=== PATIENT | male | born 1970 | race Caucasian/White ===

== ENCOUNTER 2019-07-27 12:12 | Observation (INO) ==
[2019-07-27] MEDS ORDERED: Aspirin 81 MG TAB.CHEW PO ONE (12:44)
[2019-07-27] MEDS ORDERED: Nitroglycerin 0.4 MG TAB.SUBL SL PRN (12:44)
[2019-07-27] MEDS ORDERED: Isovue-370 500 ML BOTTLE IVP ONE (12:45)
[2019-07-27 13:09] LABS: Basophils # 0.1 K/mcL (0.0-0.2); Basophils % 0.6 %; Eosinophils # 0.2 K/mcL (0.0-0.6); Eosinophils % 1.8 %; Hematocrit 49.6 % (37.5-50.1); Hemoglobin 16.1 g/dL (12.9-16.9); Immature Granulocytes % 0.8 % (0-4); Lymphocytes # 1.7 K/mcL (0.6-4.6); Lymphocytes % 15.6 %; Mean Corpuscular HGB Conc 32.5 g/dL (31.6-35.5); Mean Corpuscular Hemoglobin 28.5 pg (28.0-33.3); Mean Corpuscular Volume 87.8 fL (83.0-100.0); Mean Platelet Volume 12.2 fL (9.4-12.4); Monocytes # 0.7 K/mcL (0.0-1.3); Monocytes % 6.4 %; Platelet Count 216 K/mcL (140-400); Red Blood Count 5.65 M/mcL (4.19-5.50); Segmented Neutrophils % 74.8 %; White Blood Count 10.6 K/mcL (4.3-11.1)
[2019-07-27 13:17] LABS: INR 0.9; Prothrombin Time 10.5 Seconds (9.4-12.1)
[2019-07-27 13:20] LABS: Activated Partial Thrombo Time 31.5 Seconds (26.0-36.0)
[2019-07-27 13:26] LABS: BUN/Creatinine Ratio 24 (6-26); Blood Urea Nitrogen 18 mg/dL (6-20); Calcium 9.5 mg/dL (8.6-10.3); Carbon Dioxide 20 mEq/L (23-29); Chloride 106 mEq/L (98-107); Glucose 229 mg/dL (70-105); Osmolality,Calculated 291 (280-300); Sodium 136 mEq/L (136-145); eGFR For African Americans > 60 (> 60); eGFR For Non-African Americans > 60 (> 60)
[2019-07-27 13:27] LABS: Troponin I < 0.03 ng/mL (< 0.04)
--- NOTE | 2019-07-27 13:28 | Emergency Department Note ---
Disposition Clinical Impression: Chest pain Qualifiers: Chest pain type: unspecified Qualified Code(s): R07.9 - Chest pain, unspecified Disposition: Admitted As Inpatient Condition: Good Forms: ED Satisfaction Letter Time of Disposition: 15:32 General Adult HPI - General Chief complaint: ED Chest Pain Stated complaint: Neck Pain/Near Syncope Time Seen by Provider: 07/27/19 12:32 Source: patient Mode of arrival: ambulatory Limitations: no limitations Nursing Notes Reviewed: Yes Vital Signs Reviewed: Yes - History of Present Illness HPI Narrative: Patient is a 49-year-old male that presents emergency Department with reports of left-sided chest pain as well as pain in the center of his chest and radiates straight into his back. Patient states is a dull ache and an annoying pain in the center of his chest is a sharp pain in the left side of his chest. Patient states that when he has the pain he becomes diaphoretic, nauseated and at times will feel lightheaded. Patient also states that the pain does radiate up into his left shoulder and down into his left arm. Patient states that he does have chronic pain in his left arm however this pain is different. Patient states that he does have a strong family history of cardiac disease. Patient states that he has a history of hypertension, high cholesterol, diabetes and he is a smoker. Patient states that he has never really had pain like this before. Patient states that it began while he was at rest. Patient states the is unsure if it gets worse when he is active. Pain Scale: 5 - Related Data Home Medications Medication Instructions Recorded Confirmed Atenolol 100 mg PO DAILY 02/13/17 07/27/19 Ranitidine HCl [Acid Liner Helper] 150 mg PO DAILY 02/27/19 07/27/19 Losartan/Hydrochlorothiazide 1 tab PO DAILY 03/05/19 07/27/19 [Losartan-Hctz 100-12.5 mg Tab] glipiZIDE [Glipizide] 10 mg PO BID 03/05/19 07/27/19 Atorvastatin Calcium [Lipitor] 20 mg PO DAILY 07/27/19 07/27/19 FLUoxetine HCl [PROzac] 20 mg PO DAILY 07/27/19 07/27/19 aMILoride [Midamor] 10 mg PO DAILY 07/27/19 07/27/19 hydrOXYzine HCl [Hydroxyzine HCl] 25 mg PO BID PRN 07/27/19 07/27/19 Allergies Allergy/AdvReac Type Severity Reaction Status Date / Time No Known Allergies Allergy Verified 07/27/19 12:18 All systems ED: reviewed and negative except as stated. Constitutional: Reports: other (Sweating.). Denies: fever Cardiovascular: Reports: chest pain Respiratory: Reports: dyspnea Gastrointestinal: Reports: nausea Musculoskeletal: Reports: other (Left arm pain). Denies: back pain, neck pain Past Medical History - Past Medical History Medical history: Reports: diabetes, GERD, hypertension, other Surgical history: Reports: appendectomy, cholecystectomy Psychiatric history: Reports: anxiety - Social History Smoking Status: Current every day smoker Smokeless Tobacco Status: No Alcohol use: Reports: rarely Drug use: Reports: none Physical Exam - General Limitations: no limitations General appearance: alert, in no apparent distress - Head Head exam: atraumatic, normocephalic - Eye Eye exam: Present: normal appearance, EOMI - Neck Neck exam: Present: normal inspection, full ROM, trachea midline - Respiratory Respiratory exam: Present: normal lung sounds bilaterally. Absent: respiratory distress, wheezes - Cardiovascular Cardiovascular exam: Present: regular rate, normal rhythm, normal heart sounds, +S1, +S2 - Abdominal Exam Abdominal exam: Present: soft, Non-Tender, normal bowel sounds - Neurological Exam Neurological exam: Present: alert, oriented X3 - Psychiatric Psychiatric exam: Present: normal affect, normal mood - Skin Skin exam: Present: warm, dry, intact Course Vital Signs Temperature 99.0 F 07/27/19 12:19 Pulse Rate 57 07/27/19 12:19 Respiratory Rate 20 07/27/19 12:19 Blood Pressure 204/95 07/27/19 12:19 O2 Sat by Pulse Oximetry 98 07/27/19 12:19 Temperature 99.0 F 07/27/19 12:19 Pulse Rate 51 07/27/19 15:23 Respiratory Rate 14 07/27/19 15:23 Blood Pressure 151/87 07/27/19 15:23 O2 Sat by Pulse Oximetry 100 07/27/19 15:23 Oxygen Delivery Oxygen Delivery Room Air Medical Decision Making - MDM Narrative Medical decision making narrative: Due to the patient since emergency Department with reports of chest pain as well as pain that radiates straight into his back there is concern for possible cardiac etiology versus aortic dissection. A dissection study will be obtained. Patient laboratory testing, chest x-ray and EKG including a troponin will be obtained. Patient also be given nitroglycerin and aspirin. Patient laboratory testing was relatively unremarkable. Chest x-ray did not show any acute cardial ulnar process. The patient's CT dissection study did not show evidence of dissection or aneurysm. Patient's EKG did not show any acute ischemic changes. His troponin was negative. At this time due to the patient having multiple risk factors as well as being a smoker and overweight I think that is most appro priate for him to be admitted to the hospital for further evaluation and management of his chest pain. Patient was in agreement with this plan. Patient was admitted to the hospitalist Dr. Infante. He is accepted the patient to their service. Patient be admitted to the hospital this time for further evaluation and management. - Medical Records Medical records reviewed: Yes I reviewed the patient's medical records. - Lab Data Lab results reviewed: Yes I reviewed the patient's lab results. Result diagrams: 07/27/19 12:54 07/27/19 12:54 Lab Results 07/27/19 07/27/19 07/27/19 Range/Units 12:54 12:54 12:54 WBC 10.6 (4.3-11.1) K/mcL RBC 5.65 H (4.19-5.50) M/mcL Hgb 16.1 (12.9-16.9) g/dL Hct 49.6 (37.5-50.1) % MCV 87.8 (83.0-100.0) fL MCH 28.5 (28.0-33.3) pg MCHC 32.5 (31.6-35.5) g/dL RDW 13.0 (11.5-14.5) % Plt Count 216 (140-400) K/mcL MPV 12.2 (9.4-12.4) fL Immature Gran % 0.8 (0-4) % Seg Neutrophils % 74.8 % Lymphocytes % 15.6 % Monocytes % 6.4 % Eosinophils % 1.8 % Basophils % 0.6 % Neutrophils # 8.0 (1.6-8.9) K/mcL Lymphocytes # 1.7 (0.6-4.6) K/mcL Monocytes # 0.7 (0.0-1.3) K/mcL Eosinophils # 0.2 (0.0-0.6) K/mcL Basophils # 0.1 (0.0-0.2) K/mcL PT 10.5 (9.4-12.1) Seconds INR 0.9 APTT 31.5 (26.0-36.0) Seconds Sodium 136 (136-145) mEq/L Potassium 4.0 (3.5-5.1) mEq/L Chloride 106 (98-107) mEq/L Carbon Dioxide 20 L (23-29) mEq/L BUN 18 (6-20) mg/dL Creatinine 0.75 (0.70-1.30) mg/dL Est GFR ( Amer) > 60 (> 60) Est GFR (Non-Af Amer) > 60 (> 60) BUN/Creatinine Ratio 24 (6-26) Glucose 229 H (70-105) mg/dL Calculated Osmolality 291 (280-300) Calcium 9.5 (8.6-10.3) mg/dL Troponin I < 0.03 (< 0.04) ng/mL - Radiology Data Radiology results reviewed: Yes I reviewed the patient's radiology results. CT Dissection 07/27/19 12:45 IMPRESSION: 1. No evidence for aortic dissection or aneurysm. 2. Although not optimized for pulmonary artery visualization, no clear evidence for any suspicious filling defects in the central pulmonary arteries to suggest acute pulmonary embolism. 3. No acute infective or inflammatory process. 4. Status post cholecystectomy. D/ / Mehul Carolina MD / Mehul Carolina MD Interpreting Provider: Mehul Carolina MD Chest X-Ray 07/27/19 12:45 IMPRESSION: No radiographic evidence of acute cardiopulmonary disease. D/ / Roberto Lin / Roberto Lin Interpreting Provider: Roberto Lin - EKG Data EKG #1 EKG attestation: Yes I reviewed and interpreted this EKG. EKG results narrative: Patient's EKG shows a sinus rhythm at a rate of 57 bpm, RI interval 166, QRS duration 98, QTc of 416. There is no evidence of STEMI on EKG. This is compared to previous EKG on 04/14/19. Attestation Statement - Attestation Attestation: I examined this patient and my medical decision-making was reviewed with the Resident Physician. I agree with the documented findings, disposition and treatment plan as described except to the extent set forth below. Patient did complain some chest discomfort, diaphoresis. The patient states that he has pain, the pain subsides breaks out into a sweat. He denies any severe shortness of breath, leg pain or swelling. The patient did have an EKG. I do agree with the resident's interpretation of this EKG. Do not see any evidence of STEMI. Patient at this time did receive aspirin. Given that the pain did radiate to his back and with his history of hypertension, dissection was ruled out with a CT. This was negative. The patient this point in time is going to be admitted for further cardiac rule out. The patient will be admitted in stable condition.
[2019-07-27] MEDS ORDERED: Ondansetron 4 MG/2 ML VIAL IVP PRN (17:01)
[2019-07-27] MEDS ORDERED: Acetaminophen 325 MG TABLET PO PRN (17:01)
[2019-07-27] MEDS ORDERED: traMADol 50 MG TABLET PO PRN (17:01)
[2019-07-27] MEDS ORDERED: Naloxone 0.4 MG/ML INJ IVP PRN (17:01)
[2019-07-27] MEDS ORDERED: Dextrose Gel 15 GM/37.5 ML TUBE PO PRN ×2 (17:05)
[2019-07-27] MEDS ORDERED: D5% in Water 1,000 ML IVC PRN (17:05)
[2019-07-27] MEDS ORDERED: *HR* Dextrose 50 % in Water (Syg) 50 ML SYRINGE IVP PRN (17:05)
[2019-07-27] MEDS ORDERED: hydrOXYzine pamoate 25 MG CAPSULE PO PRN (17:10)
--- NOTE | 2019-07-27 17:21 | Internal Med History&Physical ---
Date of Encounter: 07/27/19 Time of Encounter: 16:30 Internal Medicine - H&P: HPI Chief complaint: chest pain Admitted From: Emergency Dept Plans for Post Hospital Care: Home History of present illness: Mr. Whitlock is a 49 year old male with a past medical history significant for diabetes, hypertension, GERD who presented to the ED with complaints of left- sided chest pain. 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 Patient also reports being diaphoretic nauseated and felt lightheaded. He denies any prior history of CAD or AR but did endorse a history of intermittent chest pain which he states that it was attributed to his rotator cuff tear of his left shoulder. He was noted at the ED to have elevated blood pressure and patient stated that he has whitecoat syndrome but his BP normally at home runs typically in the high 140s over the low 70s and sometimes when he forgets to take his medication he systolic maybe as high as 170 but stated he seldom forgets to take his medications. He currently denies any chest pain status post fall baby aspirin and nitroglycerin. He stated he has had numerous stress tests with a last stress test being 4 years ago. Among his workup at the ED was unremarkable CBC and BMP with initial troponin being negative. Additional work up at the ED was a CTA of the chest abdomen and pelvis which was negative for any aortic dissection or aneurysm Past Med Surg Social Fam HX - Past Medical History Medical history: diabetes, GERD, hypertension, other Additional medical history: stomach ulcer Psychiatric history: anxiety - Past Surgical History Surgical History: appendectomy, cholecystectomy - Social History Smoking Status: Current every day smoker Smokeless Tobacco Status: No Alcohol use: rarely Drug use: none - Family History Mother Living Status: Still Living Hx Family Cardiac Disorders: Yes (htn) Hx Family Respiratory Disorders: Yes (COPD) Hx Family Endocrine Disorder: Yes (DM type 2) Father Living Status: Still Living Hx Family Cardiac Disorders: Yes (open heart surgery,) Internal Medicine - H&P: Meds Atenolol 100 mg PO DAILY 02/13/17 [History] Ranitidine HCl [Acid Diplomatic Interpreter] 150 mg PO DAILY 02/27/19 [History] Losartan/Hydrochlorothiazide [Losartan-Hctz 100-12.5 mg Tab] 1 tab PO DAILY 07/16 [History] glipiZIDE [Glipizide] 10 mg PO BID 03/05/19 [History] Atorvastatin Calcium [Lipitor] 20 mg PO DAILY 07/27/19 [History] FLUoxetine HCl [PROzac] 20 mg PO DAILY 07/27/19 [History] aMILoride [Midamor] 10 mg PO DAILY 07/27/19 [History] hydrOXYzine HCl [Hydroxyzine HCl] 25 mg PO BID PRN 07/27/19 [History] Allergy/AdvReac Type Severity Reaction Status Date / Time No Known Allergies Allergy Verified 07/27/19 12:18 All Systems PM: A 10-system review of systems was performed and is negative for pertinent findings except as documented above in the HPI. Review of systems: GENERAL: Denies fever, chills, fatigue or night sweats. DERMATOLOGIC: Denies itch, rash or lesions HEENT: Denies headache, blurriness, diplopia or decreased visual acuity, ear pain, tinnitus, rhinorrhea, sinus tenderness or sore throat RESPIRATORY: Denies SOB, cough, hemoptysis or pleuritic chest pain CARDIOVASCULAR: Admits to prior chest pain, denies LE edema, palpitation or syncope GASTRO INTESTINAL: reports nausea but denies vomiting, diarrhea or constipation, melena MUSCULOSKELATAL: Denies muscle pain/weakness, joint tenderness but reports chronic stable left shoulder pain PSYCH: Denies worsening anxiety, or depression NEURO: Reports lightheadedness but Denies vertigo, or ataxia GENITURINARY: Denies dysuria, nocturia or urinary incontinence - Constitutional Vitals: Temp Pulse Resp BP Pulse Ox 99.0 F 51 14 151/87 100 07/27/19 12:19 07/27/19 15:23 07/27/19 15:23 07/27/19 15:23 07/27/19 15:23 Exam: GENERAL: Obese male NAD, A&O x3, pleasant and conversant SKIN: [place] warm dry No skin lesions or rashes, non-jaundiced EYES: EOMI, PERRLA, no sclera icterus HENT: Head atraumatic, no facial asymmetry, frontal and maxillary sinus non- tender, normal hearing, oropharynx and mucosa moist and without any exudates NECK: No cervical lymphadenopathy, trachea midline, thyroid is palpable does not appear enlarged LUNGS: vesicular breath sounds, clear to auscultation, no wheeze, rhonchi, rales or crackles. Non labored respirations HEART: Normal rate and rhythm but bradycardic, no murmurs or rubs ABDOMEN: soft, non-tender, non-distended, bowel sounds x 4 normoactive EXTRMITIES: No LE asymmetry, No LE edema, pedal pulses 1+ and radial pulses 2 + and equal bilaterally NEURO: Speech and comprehension appears intact. PSYCH: Cooperative, non- anxious or irritable, mood and affect is appropriate Internal Med - H&P Results - Labs CBC & Chem 7: 07/27/19 12:54 07/27/19 12:54 Labs: Short CBC 07/27/19 Range/Units 12:54 WBC 10.6 (4.3-11.1) K/mcL Hgb 16.1 (12.9-16.9) g/dL Hct 49.6 (37.5-50.1) % Plt Count 216 (140-400) K/mcL Neutrophils # 8.0 (1.6-8.9) K/mcL BMP 07/27/19 12:54 Sodium 136 Potassium 4.0 Chloride 106 Carbon Dioxide 20 L BUN 18 Creatinine 0.75 Glucose 229 H Calcium 9.5 Cardiac Enzymes 07/27/19 Range/Units 12:54 Troponin I < 0.03 (< 0.04) ng/mL - Impressions ITS Impressions CT Dissection 07/27/19 12:45 IMPRESSION: 1. No evidence for aortic dissection or aneurysm. 2. Although not optimized for pulmonary artery visualization, no clear evidence for any suspicious filling defects in the central pulmonary arteries to suggest acute pulmonary embolism. 3. No acute infective or inflammatory process. 4. Status post cholecystectomy. D/ / Mehul Carolina MD / Mehul Carolina MD Interpreting Provider: Mehul Carolina MD Chest X-Ray 07/27/19 12:45 IMPRESSION: No radiographic evidence of acute cardiopulmonary disease. D/ / Roberto Lin / Roberto Lin Interpreting Provider: Roberto Lin - Assessment and Plan (1) Chest pain Current Visit: Yes Status: Acute Assessment and plan: trend troponin, 2-D echo. He does admit to familiar history of coronary artery disease in both maternal and paternal side. He stated he has several negative stress test and ischemic workup. Presently denies any chest pain. Monitor on telemetry and clinically correlate Qualifiers: Chest pain type: unspecified Qualified Code(s): R07.9 - Chest pain, unspecified (2) Hypertension Current Visit: Yes Status: Chronic Assessment and plan: BP at ED was elevated patient denies noncompliance, goal BP for the patient systolic BP no less than 160, given that at the ED systolic was as high as 204 Qualifiers: Hypertension type: unspecified Qualified Code(s): I10 - Essential (primary) hypertension (3) GERD (gastroesophageal reflux disease) Current Visit: Yes Status: Acute Assessment and plan: Patient is on ranitidine, presented with atypical symptoms will switch his H2 mercedes to a PPI Qualifiers: Esophagitis presence: esophagitis presence not specified Qualified Code(s): K21.9 - Gastro-esophageal reflux disease without esophagitis (4) Diabetes Current Visit: Yes Status: Chronic Assessment and plan: We will hold his glipizide monitor Accu-Cheks placed on insulin per protocol and obtain a hemoglobin A1c in the morning Qualifiers: Diabetes mellitus type: type 2 Diabetes mellitus technician terminal and repeater insulin use: un specified long-term insulin use status Diabetes mellitus complication status: without complication Qualified Code(s): E11.9 - Type 2 diabetes mellitus without complications (5) DVT prophylaxis Current Visit: Yes Status: Acute Assessment and plan: SCDs - Time Spent With Patient Total time spent is greater than 50% in coordination of care (as documented) at patient's floor/unit and/or counseling patient:
[2019-07-27] MEDS ORDERED: Perflutren Lipid Microsphere 1.3 ML in 0.9 % Sodium Chloride 8.7 ML IVP ONE (19:22)
[2019-07-27] MEDS ORDERED: Insulin DETEMIR 100 UNIT/ML X5UNITS SQ SCH (21:00)
[2019-07-27] MEDS: Insulin LISPRO 300 UNITS/3 ML VIAL SQ SCH (21:45)
[2019-07-28] MEDS: Insulin LISPRO 300 UNITS/3 ML VIAL SQ SCH ×2 (00:45→04:16)
[2019-07-28 01:25] LABS: Basophils # 0.1 K/mcL (0.0-0.2); Basophils % 0.6 %; Eosinophils # 0.4 K/mcL (0.0-0.6); Eosinophils % 2.9 %; Hematocrit 49.2 % (37.5-50.1); Immature Granulocytes % 0.7 % (0-4); Lymphocytes # 3.5 K/mcL (0.6-4.6); Lymphocytes % 26.9 %; Mean Corpuscular HGB Conc 32.5 g/dL (31.6-35.5); Mean Corpuscular Hemoglobin 28.4 pg (28.0-33.3); Mean Corpuscular Volume 87.2 fL (83.0-100.0); Mean Platelet Volume 12.4 fL (9.4-12.4); Monocytes # 0.9 K/mcL (0.0-1.3); Monocytes % 6.8 %; Platelet Count 232 K/mcL (140-400); Red Blood Count 5.64 M/mcL (4.19-5.50); Segmented Neutrophils % 62.1 %; White Blood Count 12.9 K/mcL (4.3-11.1)
[2019-07-28 01:42] LABS: Blood Urea Nitrogen 16 mg/dL (6-20); Calcium 9.4 mg/dL (8.6-10.3); Carbon Dioxide 20 mEq/L (23-29); Chloride 105 mEq/L (98-107); Glucose 108 mg/dL (70-105); Magnesium 2.1 mg/dL (1.6-2.6); Osmolality,Calculated 284 (280-300); Potassium 3.8 mEq/L (3.5-5.1); Sodium 136 mEq/L (136-145)
[2019-07-28 01:55] LABS: BUN/Creatinine Ratio 23 (6-26); Thyroid Stimulating Hormone 1.985 mcIU/mL (0.340-5.600); eGFR For African Americans > 60 (> 60); eGFR For Non-African Americans > 60 (> 60)
[2019-07-28 04:14] LABS: Estimated Average Glucose 177 mg/dl
[2019-07-28] MEDS ORDERED: Insulin LISPRO 300 UNITS/3 ML VIAL SQ SCH (08:00)
--- NOTE | 2019-07-28 08:23 | Discharge Summary ---
- NOTES TO OUTPATIENT PROVIDER Notes to Outpatient Provider: Posthospital discharge for atypical chest pain initial ACS work up was unremarkable -troponin, 2-d echo, patient may benefit from outpatient stress test and or outpatient EGD to evaluate for S2 for esophageal dysfunction that could be contributing to his symptoms Date of Encounter: 07/28/19 Time of Encounter: 08:20 - Discharge Diagnosis (1) Chest pain Priority: Primary Status: Acute Assessment and Plan: trend troponin 3 negative, 2-D echo unremarkable no abnormal wall motion or valvular was abnormalities. He does admit to familiar history of coronary artery disease in both maternal and paternal side. He stated he has had several negative stress test and ischemic workup in the past. Presently denies any chest pain. Outpatient EGD could be explored to rule out any esophageal abnormality. On the interim he will be discharged on PPI. Would also optimize his medical regimen and increasing to a high intensity statin therapy atorvastatin 40, he is on ARB, switch his atenolol to Toprol and add an aspirin, patient now stated that he was once on aspirin full dose but developed gastric ulcers and as such he discontinued. Educated patient on the benefits of aspirin he is agreeable to start a low dose enteric coated aspirin Qualifiers: Chest pain type: unspecified Qualified Code(s): R07.9 - Chest pain, unspecified (2) Hypertension Priority: Secondary Status: Chronic Assessment and Plan: BP at ED was elevated patient denies noncompliance, goal BP for the patient systolic BP no less than 160, given that at the ED systolic was as high as 204, trending down to 172, 150, at discharge 139/70 see plans regarding his cardiovascular meds as stated above Qualifiers: Hypertension type: unspecified Qualified Code(s): I10 - Essential (primary) hypertension (3) GERD (gastroesophageal reflux disease) Priority: Secondary Status: Acute Assessment and Plan: Patient is on ranitidine, presented with atypical symptoms will switch his H2 mercedes to a PPI, discussed with patient to continue PPI for at least 1 month that he may need evaluated with a EGD to rule out any esophageal abnormality that could be contributing to his atypical chest pain. Patient does report a history of gastric ulcers Qualifiers: Esophagitis presence: esophagitis presence not specified Qualified Code(s): K21.9 - Gastro-esophageal reflux disease without esophagitis (4) Diabetes Priority: Secondary Status: Chronic Assessment and Plan: We will hold his glipizide monitor Accu-Cheks placed on insulin per protocol and obtain a hemoglobin A1c 7.8, not at goal, he stated he could not tolerate metformin in the past would add Januvia Qualifiers: Diabetes mellitus type: type 2 Diabetes mellitus termite helper insulin use: unspecified longterm insulin use status Diabetes mellitus complication stat us: without complication Qualified Code(s): E11.9 - Type 2 diabetes mellitus without complications (5) DVT prophylaxis Priority: Secondary Status: Acute Assessment and Plan[place] [facility] [place] Hospital course: Mr. Whitlock is a 49 year old male was hospitalized with chest pain. Troponin 3 was negative echo was unrevealing. He admitted to having history of several negative stress test and ischemic workup. Patient now reports a history of prior GI ulcers and GERD he is paced to mercedes was discontinued and switched to oral PPI. Patient could benefit from outpatient EGD to rule out any esophageal or GI abnormalities, that could be contributing to his atypical chest pain. Patient also was educated to follow up with his primary care physician to discuss possible outpatient stress test if one month of PPI therapy does not improve his symptoms. He currently denies any chest pain stated he had a good night rest. Patient also was noted to be poorly controlled diabetic as such it was discussed with him that he may benefit from metformin but he stated he did not tolerate this drug in the past. He is agreeable to a DPP4, on interim we will optimize his medical therapy discontinue his atenolol switching to a cardio protective beta mercedes Toprol, switch his statin therapy to a high intensity statin therapy and add aspirin to his regimen. He stated he was once on high- dose aspirin had gastric ulcers and such was discontinued. Patient was educated about the benefits of aspirin and is agreeable to low-dose aspirin hopefully the PPI medication should help his gastric ulcer hx. - Time Spent with Patient Total time spent providing and/or coordinating discharge services: - Discharge Medications Prescriptions: New Aspirin [Adult Aspirin Regimen] 81 mg PO QDPC #30 tablet. Sitagliptin Phosphate [Januvia] 50 mg PO QDPC #30 tab Atorvastatin [Lipitor] 40 mg PO HS #30 tablet Lansoprazole [Prevacid] 30 mg PO QAM #30 tab.rap. Metoprolol XL (24 HR) Succ [Toprol Xl] 25 mg PO DAILY #30 tab.er.24h Continued glipiZIDE [Glipizide] 10 mg PO BID Losartan/Hydrochlorothiazide [Losartan-Hctz 100-12.5 mg Tab] 1 tab PO DAILY FLUoxetine HCl [Prozac] 20 mg PO DAILY aMILoride [Midamor] 10 mg PO DAILY hydrOXYzine HCl [Hydroxyzine HCl] 25 mg PO BID PRN PRN Reason: Anxiety/slee[ Discontinued Atenolol 100 mg PO DAILY Atorvastatin Calcium [Lipitor] 20 mg PO DAILY Ranitidine HCl [Acid Practical Ministries Professor] 150 mg PO DAILY Home Medications: Losartan/Hydrochlorothiazide [Losartan-Hctz 100-12.5 mg Tab] 1 tab PO DAILY 03/05/19 [History] glipiZIDE [Glipizide] 10 mg PO BID 03/05/19 [History] FLUoxetine HCl [Prozac] 20 mg PO DAILY 07/27/19 [History] aMILoride [Midamor] 10 mg PO DAILY 07/27/19 [History] hydrOXYzine HCl [Hydroxyzine HCl] 25 mg PO BID PRN 07/27/19 [History] Aspirin [Adult Aspirin Regimen] 81 mg PO QDPC #30 tablet. 07/28/19 [Rx] Atorvastatin [Lipitor] 40 mg PO HS #30 tablet 07/28/19 [Rx] Lansoprazole [Prevacid] 30 mg PO QAM #30 tab.rap. 07/28/19 [Rx] Metoprolol XL (24 HR) Succ [Toprol Xl] 25 mg PO DAILY #30 tab.er.24h 07/28/19 [ Rx] Sitagliptin Phosphate [Januvia] 50 mg PO QDPC #30 tab 07/28/19 [Rx] Allergies/Adverse Reactions: Allergy/AdvReac Type Severity Reaction Status Date / Time No Known Allergies Allergy Verified 07/27/19 12:18 Date of admission: 07/27/19 17:43 Primary care physician: Anneliese Coles CNP Discharging clinician: Angie Lozada Anticipated date of discharge: 07/28/19 - Constitutional Vitals: Temp Pulse Resp BP Pulse Ox 97.6 F 52 16 139/79 98 07/28/19 02:44 07/28/19 02:44 07/28/19 02:44 07/28/19 02:44 07/28/19 02:44 Exam: GEN: Obese male NAD, A&O x 3, Pleasant and conversant SKIN: [place] warm acyanotic not jaundice HEART: RRR, no murmurs LUNGS: CTA no wheeze or crackles, overall non labored ABDOMEN; Soft, non tender or distended, BS x 4 normactive EXT: No LE edema, Pedal pulses 1+, radial pulses 2+ PSYCH: Mood and affect is appropriate - Patient Status Disposition: Home, Self-Care Condition: Good Functional capacity at discharge: independent ambulation Overall status at discharge: patient is back to baseline - Discharge Instructions Instructions: Diabetes Mellitus Type 2 in Adults (DC), Chest Pain (DC) Follow Up With: Anneliese Coles, NURSE OFFICE [Primary Care Provider] - - Diet and Activity Activity: resume usual activities as tolerated Diet: diabetic diet, low fat, low cholesterol, low salt diet
[2019-07-28 08:39] VITALS: BP 160/89
[2019-07-28] MEDS ORDERED: Metoprolol XL (24 HR) Succ 25 MG TAB.ER.24H PO SCH (09:00)
[2019-07-28] MEDS ORDERED: Losartan/HCTZ 50-12.5 TABLET PO SCH (09:00)
[2019-07-28] MEDS ORDERED: aMILoride 5 MG TABLET PO SCH (09:00)
[2019-07-28] MEDS ORDERED: Famotidine 20 MG TABLET PO SCH (09:00)
[2019-07-28] MEDS ORDERED: FLUoxetine 20 MG CAPSULE PO SCH (09:00)
--- NOTE | 2019-07-29 00:29 | Electrocardiograph Report ---
[facility] Test Date: 2019-07-27 Pat Name: Eliot Whitlock Department: [id number] Room: 3B64 Gender: M [employer]: : [id number] Requested By: Chelsi See Order Number: [id number] Reading MD: Guillermo Arce Measurements Intervals [place] Rate: 57 P: 13 [place]: 166 QRS: 61 QRSD: 98 T: 28 QT: 423 QTc: 416 Interpretive Statements SINUS BRADYCARDIA ANTEROSEPTAL MYOCARDIAL INFARCTION, PROBABLY OLD Electronically Signed On 07-29-2019 0:27:54 EDT by Guillermo Arce
== END 2019-07-28 10:03 | disposition home or self-care (01) ==
LOC: SUATTDRO → EMEROOARM 12:12 → 3BNU 12:12
PROVIDERS: ADMIT Internal Medicine; ATTEND Internal Medicine

== ENCOUNTER 2020-08-18 13:47 | Observation (INO) ==
[2020-08-18] MEDS ORDERED: Aspirin 325 MG TABLET PO ONE (14:10)
[2020-08-18 14:25] LABS: Basophils # 0.1 K/mcL (0.0-0.2); Basophils % 0.7 %; Eosinophils # 0.2 K/mcL (0.0-0.6); Eosinophils % 1.6 %; Hematocrit 49.5 % (37.5-50.1); Immature Granulocytes % 0.7 % (0-4); Lymphocytes # 3.1 K/mcL (0.6-4.6); Lymphocytes % 27.1 %; Mean Corpuscular HGB Conc 32.3 g/dL (31.6-35.5); Mean Corpuscular Hemoglobin 28.2 pg (28.0-33.3); Mean Corpuscular Volume 87.1 fL (83.0-100.0); Mean Platelet Volume 12.4 fL (9.4-12.4); Monocytes # 0.7 K/mcL (0.0-1.3); Monocytes % 5.9 %; Neutrophils # 7.3 K/mcL (1.6-8.9); Platelet Count 248 K/mcL (140-400); Red Blood Count 5.68 M/mcL (4.19-5.50); White Blood Count 11.4 K/mcL (4.3-11.1)
[2020-08-18 15:20] LABS: Prothrombin Time 10.9 Seconds (9.4-12.1)
[2020-08-18 15:23] LABS: Activated Partial Thrombo Time 33.3 Seconds (26.0-36.0)
[2020-08-18] MEDS: DilTIAZem 50 MG/50 ML IV.SOLN IVC SCH (15:53)
[2020-08-18 16:05] LABS: BUN/Creatinine Ratio 22 (6-26); Blood Urea Nitrogen 20 mg/dL (6-20); Calcium 9.5 mg/dL (8.6-10.3); Carbon Dioxide 22 mEq/L (23-29); Chloride 106 mEq/L (98-107); Glucose 205 mg/dL (70-105); Osmolality,Calculated 295 (280-300); Potassium 3.6 mEq/L (3.5-5.1); Sodium 138 mEq/L (136-145); eGFR For African Americans > 60 (> 60); eGFR For Non-African Americans > 60 (> 60)
[2020-08-18] MEDS ORDERED: Naloxone 0.4 MG/ML INJ IVP PRN (16:47)
[2020-08-18] MEDS ORDERED: D5% in Water 1,000 ML IVC PRN (16:48)
[2020-08-18] MEDS ORDERED: Dextrose Gel 15 GM/37.5 ML TUBE PO PRN ×2 (16:48)
[2020-08-18] MEDS ORDERED: *HR* Dextrose 50 % in Water (Vial) 50 ML VIAL IVP PRN (16:48)
[2020-08-18] MEDS ORDERED: *HR* Heparin 5,000 UNIT/ML VIAL IVP ONE (17:39)
[2020-08-18] MEDS ORDERED: *HR* Heparin 5,000 UNIT/ML VIAL IVP PRN ×2 (17:39)
[2020-08-18 18:20] LABS: Hematocrit 50.1 % (37.5-50.1); Hemoglobin 16.1 g/dL (12.9-16.9); Mean Corpuscular HGB Conc 32.1 g/dL (31.6-35.5); Mean Corpuscular Hemoglobin 27.8 pg (28.0-33.3); Mean Corpuscular Volume 86.4 fL (83.0-100.0); Mean Platelet Volume 12.6 fL (9.4-12.4); Platelet Count 268 K/mcL (140-400); Red Cell Distribution Width 13.1 % (11.5-14.5); White Blood Count 12.3 K/mcL (4.3-11.1)
[2020-08-18] MEDS: Heparin 25,000UNIT/250ML 1/2NS 25,000 UNIT/250 ML IV.SOLN IVC SCH (20:05)
[2020-08-18] MEDS ORDERED: Insulin LISPRO 300 UNITS/3 ML VIAL SQ SCH (21:00)
[2020-08-19] MEDS: DilTIAZem 50 MG/50 ML IV.SOLN IVC SCH (01:00)
[2020-08-19 02:55] LABS: Basophils # 0.1 K/mcL (0.0-0.2); Basophils % 0.7 %; Eosinophils # 0.3 K/mcL (0.0-0.6); Eosinophils % 2.5 %; Hematocrit 46.6 % (37.5-50.1); Hemoglobin 15.1 g/dL (12.9-16.9); Lymphocytes # 3.6 K/mcL (0.6-4.6); Lymphocytes % 33.6 %; Mean Corpuscular HGB Conc 32.4 g/dL (31.6-35.5); Mean Corpuscular Volume 86.5 fL (83.0-100.0); Mean Platelet Volume 12.8 fL (9.4-12.4); Monocytes # 0.8 K/mcL (0.0-1.3); Monocytes % 7.2 %; Neutrophils # 5.9 K/mcL (1.6-8.9); Platelet Count 247 K/mcL (140-400); Red Blood Count 5.39 M/mcL (4.19-5.50); Red Cell Distribution Width 13.2 % (11.5-14.5); White Blood Count 10.7 K/mcL (4.3-11.1)
[2020-08-19 03:07] LABS: BUN/Creatinine Ratio 23 (6-26); Blood Urea Nitrogen 18 mg/dL (6-20); Carbon Dioxide 25 mEq/L (23-29); Chloride 106 mEq/L (98-107); Glucose 120 mg/dL (70-105); Osmolality,Calculated 291 (280-300); Potassium 3.3 mEq/L (3.5-5.1); Sodium 139 mEq/L (136-145); eGFR For African Americans > 60 (> 60); eGFR For Non-African Americans > 60 (> 60)
[2020-08-19 03:49] LABS: Estimated Average Glucose 180 mg/dl
[2020-08-19] MEDS: Heparin 25,000UNIT/250ML 1/2NS 25,000 UNIT/250 ML IV.SOLN IVC SCH (08:56)
[2020-08-19] MEDS ORDERED: Insulin DETEMIR 100 UNIT/ML X5UNITS SQ SCH (09:00)
[2020-08-19] MEDS ORDERED: Aspirin Enteric Coated 81 MG Tablet PO SCH (09:00)
[2020-08-19] MEDS ORDERED: FLUoxetine 20 MG CAPSULE PO SCH (09:00)
[2020-08-19] MEDS ORDERED: Losartan/HCTZ 50-12.5 TABLET PO SCH (09:00)
[2020-08-19] MEDS ORDERED: Metoprolol XL (24 HR) Succ 50 MG TAB.ER.24H PO SCH (09:00)
[2020-08-19 11:23] VITALS: BP 136/80
[2020-08-19] MEDS ORDERED: Insulin LISPRO 300 UNITS/3 ML VIAL SQ SCH (11:30)
== END 2020-08-19 12:06 | disposition home or self-care (01) ==
LOC: EMEROOARM 13:47 → 2ANU 13:47 → SUATTDRO 17:59 → 2ANU 18:34
PROVIDERS: ADMIT Internal Medicine; ATTEND Internal Medicine

== ENCOUNTER 2021-03-25 12:13 | Observation (INO) ==
[2021-03-25 13:52] LABS: Basophils # 0.1 K/mcL (0.0-0.2); Basophils % 0.6 %; Eosinophils # 0.1 K/mcL (0.0-0.6); Eosinophils % 0.9 %; Immature Granulocytes % 0.8 % (0-4); Lymphocytes # 1.9 K/mcL (0.6-4.6); Lymphocytes % 17.1 %; Mean Corpuscular Hemoglobin 28.2 pg (28.0-33.3); Mean Platelet Volume 12.3 fL (9.4-12.4); Monocytes # 0.6 K/mcL (0.0-1.3); Monocytes % 5.7 %; Neutrophils # 8.2 K/mcL (1.6-8.9); Platelet Count 217 K/mcL (140-400); Red Blood Count 5.68 M/mcL (4.19-5.50); Red Cell Distribution Width 13.9 % (11.5-14.5); Segmented Neutrophils % 74.9 %
[2021-03-25 14:13] LABS: BUN/Creatinine Ratio 22 (6-26); Blood Urea Nitrogen 20 mg/dL (6-20); Carbon Dioxide 25 mEq/L (23-29); Chloride 104 mEq/L (98-107); Glucose 147 mg/dL (70-105); Osmolality,Calculated 293 (280-300); Potassium 3.9 mEq/L (3.5-5.1); Sodium 139 mEq/L (136-145); Troponin I < 0.03 ng/mL (< 0.04); eGFR For African Americans > 60 (> 60); eGFR For Non-African Americans > 60 (> 60)
[2021-03-25] MEDS ORDERED: Melatonin 3 MG TABLET PO PRN (16:15)
[2021-03-25] MEDS ORDERED: Ondansetron 4 MG/2 ML VIAL IVP PRN (16:15)
[2021-03-25] MEDS ORDERED: D5% in Water 1,000 ML IVC PRN (16:17)
[2021-03-25] MEDS ORDERED: *HR* Dextrose 50 % in Water (Vial) 50 ML VIAL IVP PRN (16:17)
[2021-03-25] MEDS ORDERED: Dextrose Gel 15 GM/37.5 ML TUBE PO PRN ×2 (16:17)
[2021-03-25] MEDS ORDERED: Nitroglycerin 0.4 MG TAB.SUBL SL PRN (16:18)
[2021-03-25] MEDS: Insulin LISPRO 300 UNITS/3 ML VIAL SUBQ SCH (18:07)
[2021-03-25] MEDS: *HR* Heparin 5,000 UNIT/ML VIAL SQ SCH (18:22)
[2021-03-26 00:49] LABS: Troponin I < 0.03 ng/mL (< 0.04)
[2021-03-26] MEDS: *HR* Heparin 5,000 UNIT/ML VIAL SQ SCH (05:45)
[2021-03-26] MEDS: Regadenoson 0.4 MG/5 ML SYRINGE IVP ONE ×2 (07:46→07:53)
[2021-03-26] MEDS ORDERED: hydroCHLOROthiazide 25 MG TABLET PO SCH (09:00)
[2021-03-26] MEDS ORDERED: FLUoxetine 20 MG CAPSULE PO SCH (09:00)
[2021-03-26] MEDS ORDERED: aMILoride 5 MG TABLET PO SCH (09:00)
[2021-03-26] MEDS ORDERED: Aspirin Enteric Coated 81 MG Tablet PO SCH (09:00)
[2021-03-26] MEDS: Insulin LISPRO 300 UNITS/3 ML VIAL SUBQ SCH (09:12)
[2021-03-26 09:16] LABS: Chol/HDL Ratio 5.1 (0-4.9); Cholesterol 172 mg/dL (< 200); HDL Cholesterol 34 mg/dL (40-59); LDL Cholesterol,Calculated 89 mg/dL (< 100); Triglycerides 244 mg/dL (< 150)
[2021-03-26] MEDS ORDERED: Metoprolol XL (24 HR) Succ 50 MG TAB.ER.24H PO SCH (10:00)
[2021-03-26 10:46] VITALS: BP 161/83
[2021-03-26 13:34] LABS: Estimated Average Glucose 166 mg/dl; Hemoglobin A1C 7.4 %
== END 2021-03-26 11:34 | disposition home or self-care (01) ==
LOC: EMEROOARM 12:13 → 3BNU 12:13 → SUATTDRO 16:17 → 3BNU 18:10
PROVIDERS: ADMIT Internal Medicine; ATTEND Internal Medicine